=== PATIENT | male | born 1940 | race Caucasian/White ===

== ENCOUNTER → 2016-10-14 | Outpatient (CLI) | payer OTHER ==
[~2016-10-14] MED LIST: ANEXSIA 7.5/3251 TA1 PO; ASPIRIN ENTERI325 M1 PO; ASPIRIN325 M1 PO; ASPIRINEC PO; BAYER ASPIRIN325 M1; CARTIA XT PO; CENTRUM PO; CENTRUM SILVER PO; DARVOCET-N 1001 TA1 PO; DIOVAN160 MG PO; FISH OIL 1,001000 M1 PO; FISH OIL 1,4001 EACH PO; FISH OIL PO; FISH OIL500 M1 PO; GLUCOSAMINE & C1 CAP PO; GLUCOSAMINE CHO1 CA2 PO; HCTZ PO; LEXAPRO PO; LISINOPRIL10 MG PO; LIVALO1 MG PO; LORTAB 5/500 TA1 TA1 PO; LORTAB 7.51 TAB PO; METOPROLOL TART25 MG PO; MUCINEX DM ER1 EAC1 PO; MUCINEX PO; MUCINEX1200 MG/BO PO; MULTI VITAMIN1 EACH PO; MULTIPLE VITAMI1 T12 PO; MULTIVITAMIN SENIOR PO; MULTIVITAMIN1 UDCAP PO; NIASPAN PO; OMEPRAZOLE MAGN20 MG PO; OXYCODONE HCL5 MG PO; PREVACID PO; PREVACID15 MG PO; PRILOSEC20 MG PO; SYMBICORT INH; TOPROL XL 50 MG50 MG PO; TOPROL XL PO; TOPROL XL50 MG PO; VIT B-12 PO; VITAMIN C PO; VITAMIN C100 MG PO; VITAMIN C1000 M2 PO; VITAMIN C500 M1; VITAMIN C500 M1 PO; VITAMIN D 4001 UDTAB PO; VITAMIN D-3 4001 TAB PO; VITAMIN D-32000 UNI1 PO; VITAMIN D-32000 UNIT; VITAMIN D1000 UNI1 PO; WELCHOL625 MG PO; ZOCOR PO; ZYVOX600 MG PO; [UNRECOGNIZED DRUG - OTHER] PO; [UNRECOGNIZED DRUG - OTHER] PO
--- NOTE | ~2016-10-14 | US83 ---
[facility]. [facility] A Service of [facility] & [facility] RADIOLOGY TEXT RESULTS PATIENT: KAJAL WEBB LOCATION: CNIV : 41 UNIT #: [id number] AGE: [address]: Jarett Mayberry MD SEX: M ORDER DR: [id number] [facility] [address] [place], [place] [address] [id number] O MR#: [id number] Acc #: [id number] NAME: KAJLA WEBB : 1940 SEX: M STUDY DATE/TIME: 10/14/2016 12:32 UNIT: CNIV ROOM: STUDY DESCRIPTION: US LE [employer] Attending Physician: Jarett Mayberry M.D. Referring Physician: Jarett Mayberry M.D. Ordering Physician: Jarett Mayberry M.D. Primary Care Physician: Herber Hamilton M.D. MEDICAL IMAGING REPORT This report is preliminary unless electronic signature is present EXAM Right leg graft scan date of examination 10/14/2016 HISTORY Right leg bypass graft surveillance. FINDINGS High resolution B-mode imaging and color flow Doppler analysis was performed of the right lower extremity arteries. The bypass graft appears somewhat tortuous at the proximal anastomosis, but is patent. Peak systolic velocity at the proximal anastomosis is 173 cm/sec. Peak systolic velocity in the proximal thigh is 105 cm/sec, upper thigh 99 cm/sec, mid thigh 131 cm/sec, distal thigh 93 cm/sec, knee 85 cm/sec, proximal calf 97 cm/sec, and distal anastomosis 80 cm/sec. IMPRESSION Patent right leg bypass graft. No significant stenosis is demonstrated. Dictated by... Riaz Villanueva M.D. THIS IS AN ELECTRONICALLY VERIFIED REPORT Riaz Villanueva M.D. at 10/15/2016 7:32 AM NISHI/gabrielr TD: 10/14/2016 17:21 JOB #: [id number] MEDICAL IMAGING REPORT Page 1 of 1 COPY
--- NOTE | ~2016-10-14 | US136 ---
[facility] A Service of [facility] RADIOLOGY TEXT RESULTS PATIENT: KAJAL WEBB LOCATION: CNIV : 41 UNIT #: [id number] AGE: [address]: Jarett Mayberry MD SEX: M ORDER DR: [id number] [facility] [address] [place] [place], [place] [address] [id number] O MR#: [id number] Acc #: [id number] NAME: KAJAL WEBB : 1940 SEX: M STUDY DATE/TIME: 10/14/2016 12:18 UNIT: CNIV ROOM: STUDY DESCRIPTION: U/L Ext Art Study [facility] Bil Attending Physician: Jarett Mayberry M.D. Referring Physician: Jarett Mayberry M.D. Ordering Physician: Jarett Mayberry M.D. Primary Care Physician: Herber Hamilton M.D. MEDICAL IMAGING REPORT This report is preliminary unless electronic signature is present EXAM Ankle to brachial indices DATE OF EXAMINATION 10/14/2016 HISTORY Peripheral artery disease. FINDINGS The right brachial pressure is 180 and the left brachial pressure is 172. The right dorsalis pedis pressure is 154, posterior tibial 166, and toe 156 for an ankle to brachial index of 0.92. The left dorsalis pedis pressure is 141, posterior tibial 144, and toe 130 for an ankle to brachial index of 0.80. Pulse volume recording tracings demonstrate damping of the amplitude of the signal in the left ankle compared to the right. The digital waveforms are fairly good on both sides. IMPRESSION Normal perfusion to the right leg with an ankle to brachial index of 0.92. Mild ischemia of the left leg with an ankle to brachial index of 0.80. Dictated by... Riaz Villanueva M.D. THIS IS AN ELECTRONICALLY VERIFIED REPORT Riaz Villanueva M.D. at 10/15/2016 7:32 AM NISHI/mary [facility] A Service of [facility] RADIOLOGY TEXT RESULTS PATIENT: KAJAL WEBB LOCATION: CNIV : 41 UNIT #: [id number] AGE: [address]: Jarett Mayberry MD SEX: M ORDER DR: TD: 10/14/2016 17:19 JOB #: [id number] MEDICAL IMAGING REPORT Page 1 of 1 COPY
--- NOTE | ~2016-10-14 | US37 ---
[facility] A Service of [facility] & [facility] RADIOLOGY TEXT RESULTS PATIENT: KAJAL WEBB LOCATION: CNIV : 41 UNIT #: [id number] AGE: [address]: Jarett Mayberry MD SEX: M ORDER DR: [id number] [facility] [address] [place], [place] [address] [id number] O MR#: [id number] Acc #: [id number] NAME: KAJAL WEBB : 1940 SEX: M STUDY DATE/TIME: 10/14/2016 12:45 UNIT: CNIV ROOM: STUDY DESCRIPTION: US Carotid W/Doppler Bilateral Attending Physician: Jarett Mayberry M.D. Referring Physician: Jarett Mayberry M.D. Ordering Physician: Jarett Mayberry M.D. Primary Care Physician: Herber Hamilton M.D. MEDICAL IMAGING REPORT This report is preliminary unless electronic signature is present EXAM Carotid duplex scan. DATE OF EXAM 10/14/2016 HISTORY Carotid stenosis. FINDINGS The right common carotid artery has a small amount of dense irregular plaque. There is dense irregular plaque in the right carotid bulb which extends up into the proximal internal carotid artery. Peak systolic velocity in the mid right internal carotid artery is 78 cm/sec with an end-diastolic velocity of 17 cm/sec. The ICA:CCA ratio on the right is 0.94. Peak systolic velocity in the right external carotid artery is 116 cm/sec. The right vertebral artery is patent with antegrade flow. The left common carotid artery has a small amount of dense irregular plaque. There is dense irregular plaque in the left carotid bulb which extends up into the proximal internal carotid artery. Peak systolic velocity in the proximal left internal carotid artery is 124 cm/sec with an end-diastolic velocity of 24 cm/sec. The ICA:CCA ratio on the left is 1.53. Peak systolic velocity in the left external carotid artery is 147 cm/sec. The left vertebral artery is patent with antegrade flow. IMPRESSION Small amount of plaque, but no significant stenosis (less than 50%) in the internal carotid arteries bilaterally. No significant stenosis of the right external carotid artery. Significant stenosis of the left external carotid artery. Patent vertebral arteries bilaterally with antegrade flow. [facility] [place] A Service of [facility] & [facility] RADIOLOGY TEXT RESULTS PATIENT: KAJAL WEBB LOCATION: [facility] : 41 UNIT #: [id number] AGE: [address]: Jarett Mayberry MD SEX: M ORDER DR: Dictated by... Riaz Villanueva M.D. THIS IS AN ELECTRONICALLY VERIFIED REPORT Riaz Villanueva M.D. at 10/15/2016 7:32 AM NISHI/giuliana TD: 10/14/2016 17:19 JOB #: [id number] MEDICAL IMAGING REPORT Page 1 of 1 COPY
== END | disposition home or self-care (01) ==
LOC: CNIV 12:01
DX: I65.23 Occlusion and stenosis of bilateral carotid arteries (principal); I73.9 Peripheral vascular disease, unspecified; I99.8 Other disorder of circulatory system; Z95.828 Presence of other vascular implants and grafts
CPT/HCPCS: 93880; 93922; 93926